=== PATIENT | female | born 1985 | race Caucasian/White ===

== ENCOUNTER 2016-12-08 07:18 | Emergency (ER) | payer OTHER ==
--- NOTE | 2016-12-08 07:59 | ED ---
General Adult HPI - General Chief complaint: Syncope Stated complaint: Fall, head injury Time Seen by Provider: 12/08/16 07:28 Source: patient, RN notes reviewed, old records reviewed Mode of arrival: wheelchair Limitations: no limitations - History of Present Illness Initial comments: This is a 31-year-old female ER for evaluation of syncopal event. Patient has been fall after passing out. Patient has history of syncope, denies any complaints at this time, no headache no chest finishers of breath about pain, no injuries from fall. Patient states she is feeling fine. Does not smoke, is not on control. Has no abdominal pain. Again is no chest pain. She has syncopal event while getting ready for work this morning, has never had this issue before, did collapse but has no injury from fall. Patient's at this time she feels fine - Related Data Home Medications Medication Instructions Recorded Confirmed buPROPion SR [Wellbutrin Sr] 150 mg PO BID 12/08/16 12/08/16 traMADol HCl [Ultram] 50 mg PO BID 12/08/16 12/08/16 Allergies Allergy/AdvReac Type Severity Reaction Status Date / Time No Known Allergies Allergy Verified 12/08/16 07:25 Review of Systems ROS Statement: Those systems with pertinent positive or pertinent negative responses have been documented in the HPI. ROS Other: All systems not noted in ROS Statement are negative. Past Medical History Past Medical History: No Reported History History of Any Multi-Drug Resistant Organisms: None Reported Past Surgical History: No Surgical Hx Reported Past Anesthesia/Blood Transfusion Reactions: No Reported Reaction Past Psychological History: Anxiety, Depression Smoking Status: Current every day smoker Past Alcohol Use History: None Reported Past Drug Use History: None Reported - Past Family History Mother Family Medical History: No Reported History General Exam Limitations: no limitations General appearance: alert, in no apparent distress Head exam: Present: atraumatic, normocephalic, normal inspection Eye exam: Present: normal appearance, PERRL, EOMI. Absent: scleral icterus, conjunctival injection, periorbital swelling ENT exam: Present: normal exam, mucous membranes moist Neck exam: Present: normal inspection. Absent: tenderness, meningismus, lymphadenopathy Respiratory exam: Present: normal lung sounds bilaterally. Absent: respiratory distress, wheezes, rales, rhonchi, stridor Cardiovascular Exam: Present: regular rate, normal rhythm, normal heart sounds. Absent: systolic murmur, diastolic murmur, rubs, gallop, clicks GI/Abdominal exam: Present: soft, normal bowel sounds. Absent: distended, tenderness, guarding, rebound, rigid Extremities exam: Present: normal inspection, full ROM, normal capillary refill. Absent: tenderness, pedal edema, joint swelling, calf tenderness Back exam: Present: normal inspection Neurological exam: Present: alert, oriented X3, CN II-XII intact Psychiatric exam: Present: normal affect, normal mood Skin exam: Present: warm, dry, intact, normal color. Absent: rash Course Vital Signs 12/08/16 12/08/16 07:20 08:41 Temperature 97.4 F L 98.1 F Pulse Rate 116 H 103 H Respiratory 16 18 Rate Blood Pressure 132/87 127/64 O2 Sat by Pulse 97 99 Oximetry EKG Findings - EKG Comments: EKG Findings:: EKG shows sinus tachycardia rate 104, RI 124, QRS 84, QTC 489 Medical Decision Making - Medical Decision Making 31 female to the ER for evaluation of syncope, patient patient has recurrent syncope, at this time has no complaints. Patient states she feels fine and would like to be discharged home - Lab Data Lab Results 12/08/16 12/08/16 12/08/16 Range/Units 07:33 07:48 07:48 POC Glucose (mg/dL) 89 (75-99) mg/dL POC Glu Optical Assistant ID Ted Sidhu Urine Color Yellow Urine Appearance Clear (Clear) Urine pH 5.5 (5.0-8.0) Ur Specific [place] 1.012 (1.001-1.035) Urine Protein Negative (Negative) Urine Glucose (UA) Negative (Negative) Urine Ketones Negative (Negative) Urine Blood Small H (Negative) Urine Nitrite Negative (Negative) Urine Bilirubin Negative (Negative) Urine Urobilinogen <2.0 (<2.0) mg/dL Ur Leukocyte Esterase Negative (Negative) Urine RBC 1 (0-5) /hpf Urine WBC 3 (0-5) /hpf Ur Squamous Epith Cells <1 (0-4) /hpf Hyaline Casts 13 H (0-2) /lpf Granular Casts 33 (0) /lpf Urine Mucus Rare H (None) /hpf Urine HCG, Qual Not Detected (Not Detectd) Disposition Clinical Impression: Vasovagal syncope Disposition: HOME SELF-CARE Condition: Good Instructions: Syncope (ED) Referrals: Molly Larios MD [Primary Care Provider] - 1-2 days
[2016-12-08 08:20] LABS: Appearance,Urine Clear (Clear); Bilirubin,Urine Negative (Negative); Glucose,Urine (UA) Negative (Negative); Granular Casts,Urine 33 /lpf (0); Ketones,Urine Negative (Negative); Leukocyte Esterase,Urine Negative (Negative); Mucus,Urine Rare /hpf; Nitrite,Urine Negative (Negative); PH, Urine 5.5 (5.0-8.0); Particle Count 5222; Protein,Urine Negative (Negative); RBC,Urine 1 /hpf (0-5); Specific Gravity,Urine 1.012 (1.001-1.035); Squamous Epithelial Cell,Urine <1 /hpf (0-4); UA Billing (MACRO vs. MICRO) MICRO; Urobilinogen,Urine <2.0 mg/dL (<2.0); WBC,Urine 3 /hpf (0-5)
[2016-12-08 08:43] VITALS: BP 127/64; PULSE 103; RESP 18; TEMP 98.1
[2016-12-08 08:49] LABS: Glucose,Whole Blood 89 mg/dL (75-99)
--- NOTE | 2016-12-11 16:28 | CDI ---
Please provide a HPI for this patient. Thanks Daly COOPER
== END 2016-12-08 08:42 | disposition home or self-care (01) ==
LOC: EC 07:18
DX: R55 Syncope and collapse (principal); F17.200 Nicotine dependence, unspecified, uncomplicated; F32.9 Major depressive disorder, single episode, unspecified; Z79.899 Other long term (current) drug therapy; Z79.891 Long term (current) use of opiate analgesic
CPT/HCPCS: 36415; 81001; 81025; 93005; 99284

== ENCOUNTER → 2017-02-28 | Outpatient (CLI) | payer OTHER ==
--- NOTE | 2017-02-28 13:22 | MR ---
EXAMINATION TYPE: MR lumbar spine wo con DATE OF EXAM: 02/28/2017 COMPARISON: NONE HISTORY: Low back pain per order. Back pain into right buttocks for years per patient. TECHNIQUE: Multiplanar, multisequence imaging of the lumbar spine is performed without IV contrast. FINDINGS: Sagittal images of the lumbar spine show vertebral body heights and alignment to appear sat isfactory. There is disc desiccation noted at L5-S1 level with posterior disc herniation seen on sagi ttal images otherwise the intervertebral discs demonstrate normal heights and hydration. The conus m edullaris is normal in position and signal ending at mid L1 level. The bone marrow signal intensity is within normal limits. No significant spurring is seen. Axial images show the T12-L1, L1-L2, L2-L3, and L3-L4 levels all to appear within normal limits. Axial images at L4-L5 level show mild bilateral facet degenerative changes and ligamentum flavum hype rtrophy. Spinal canal is preserved and bilateral neural foramina are patent. Axial images at L5-S1 level show mild facet degenerative changes bilaterally. There is broad-based ri ght paracentral disc protrusion but spinal canal is preserved and bilateral neural neural foramina ar e felt patent. No suspicious retroperitoneal findings are identified. IMPRESSION: Some mild multilevel degenerative changes in the lumbar spine as detailed above, disc her niation L5-S1 level is present.
== END | disposition home or self-care (01) ==
LOC: RADMRIMAIN 11:43
PROVIDERS: ATTEND Family Medicine
DX: M51.27 Other intervertebral disc displacement, lumbosacral region (principal); M47.816 Spondylosis without myelopathy or radiculopathy, lumbar region
CPT/HCPCS: 72148

== ENCOUNTER 2017-12-28 17:27 | Observation (INO) | payer OTHER ==
[2017-12-28] MEDS ORDERED: SODIUM CHLORIDE 0.9% 1,000 ML IV STA (17:52)
--- NOTE | 2017-12-28 17:58 | ED ---
Syncope HPI - General Chief Complaint: Syncope Stated Complaint: Syncope Time Seen by Provider: 12/28/17 17:45 Source: patient, EMS Mode of arrival: EMS Limitations: no limitations - History of Present Illness Initial Comments: This 32-year-old white female presents with a complaint of a syncopal episode. She apparently was at home when this occurred. She relates that she thinks that she has fibromyalgia and took 2 unknown milligram pills of Lyrica around noon today. She then started feeling somewhat dizzy and like she was drunk around 2 PM. She apparently passed out and hit her head at that time. She presents with some swelling to her forehead and a contusion to her left lower lip. She also is complaining of some pain to her tailbone. She states that she is feeling less dizzy at this time. She is unsure how long she was unconscious for. She does complain of a slight headache. She relates that this is the first time that she took the Lyrica and it was from a friend. She is counseled not to take any medications she is not prescribed. She denies any neck or back pain. No extremity pain. No other complaints or modifying factors. - Related Data Home Medications Medication Instructions Recorded Confirmed No Known Home Medications [No 12/28/17 12/28/17 Known Home Medications] Allergies Allergy/AdvReac Type Severity Reaction Status Date / Time No Known Allergies Allergy Verified 12/28/17 18:00 Review of Systems ROS Statement: Those systems with pertinent positive or pertinent negative responses have been documented in the HPI. ROS Other: All systems not noted in ROS Statement are negative. Past Medical History Past Medical History: No Reported History History of Any Multi-Drug Resistant Organisms: None Reported Past Surgical History: No Surgical Hx Reported Past Anesthesia/Blood Transfusion Reactions: No Reported Reaction Past Psychological History: Anxiety, Depression Smoking Status: Current every day smoker Past Alcohol Use History: None Reported Past Drug Use History: None Reported, Methamphetamine - Past Family History Mother Family Medical History: No Reported History General Exam - General Exam Comments Initial Comments: GENERAL: The patient is well nourished and well hydrated. VITAL SIGNS: Heart rate, blood pressure, respiratory rate reviewed as recorded in nurse's notes. EYES: Pupils are round and reactive. Extraocular movements are intact. No conjunctival / lid redness or swelling. ENT: There is some mild tenderness and swelling to the forehead region just to the left of midline superiorly. There is some swelling and ecchymosis present to the left lower lip. Dentition is intact and nontender. Airway is patent. Throat is clear. NECK: Nontender. No swelling or evidence of injury. No subcutaneous emphysema. Trachea is midline. No thyroid mass. HEART: Regular rate and rhythm. Good peripheral pulses. LUNGS/CHEST: Breath sounds clear and equal bilaterally. No rales, rhonchi, or wheezes. No ecchymosis, subcutaneous emphysema, or tenderness. ABDOMEN: Abdomen soft without tenderness. No palpable masses or organomegaly. No peritoneal signs. No abdominal wall swelling or ecchymosis. EXTREMITIES: No extremity tenderness. Normal muscle tone and function. No thoracolumbar tenderness. There is some mild tenderness over the sacrum and coccyx. NEUROLOGIC: Sensation is grossly intact. Cranial nerve exam reveals face is symmetrical, tongue is midline, speech is clear. SKIN: No abrasions or ecchymosis is noted. No induration or masses noted. PSYCHIATRIC: Alert and oriented. Appropriate behavior and judgment. Limitations: no limitations Course Vital Signs 12/28/17 12/28/17 17:30 19:15 Temperature 98.3 F 99.3 F Pulse Rate 123 H 106 H Respiratory 20 16 Rate Blood Pressure 119/57 121/68 O2 Sat by Pulse 100 100 Oximetry Medical Decision Making - Medical Decision Making The patient was seen and examined. All diagnostics were reviewed. IV hydration is initiated. The EKG shows a sinus tachycardia rate of 111. There is no acute ST-T wave changes identified. The ME intervals 140, QRS duration is 70, and the QTC intervals 467. The laboratory was all essentially within normal limits. The urinalysis did show the possibility of a urinary infection or patient is completely asymptomatic in regards to frequency, urgency, dysuria , and hematuria. Overall, it is felt as though the urinary findings are equivocal and she will not be treated for urinary tract infection at this time. The computed tomography scan of the brain did not show any acute processes. The sacrum and coccyx x-ray is negative for any fracture. She is doing well on recheck. The urinalysis drug screen shows positive for methadone, amphetamines , and dextroamphetamines. She is questioned in this regard and states that she does not take any of these medications. She is wondering if this could be a cross reactive reaction to taking Wellbutrin. It is felt that it would not be likely but potentially possible further amphetamines and dextroamphetamines. It would not show positive for methadone. She was questioned several different ways and still refuses taking these medications. Nevertheless, it is felt as though she stable for discharge. She is counseled once again about avoiding drugs from other people and avoiding any amphetamines or methadone. - Lab Data Result diagrams: 12/28/17 17:15 12/28/17 17:15 Lab Results 12/28/17 12/28/17 12/28/17 Range/Units 17:15 17:15 17:15 WBC 6.6 (3.8-10.6) k/uL RBC 3.84 (3.80-5.40) m/uL Hgb 12.6 (11.4-16.0) gm/dL Hct 38.3 (34.0-46.0) % MCV 99.9 (80.0-100.0) fL MCH 32.7 (25.0-35.0) pg MCHC 32.8 (31.0-37.0) g/dL RDW 12.8 (11.5-15.5) % Plt Count 288 (150-450) k/uL Neutrophils % 72 % Lymphocytes % 14 % Monocytes % 6 % Eosinophils % 4 % Basophils % 0 % Neutrophils # 4.8 (1.3-7.7) k/uL Lymphocytes # 0.9 L (1.0-4.8) k/uL Monocytes # 0.4 (0-1.0) k/uL Eosinophils # 0.2 (0-0.7) k/uL Basophils # 0.0 (0-0.2) k/uL PT (9.0-12.0) sec INR (<1.2) APTT (22.0-30.0) sec Sodium 142 (137-145) mmol/L Potassium 4.3 (3.5-5.1) mmol/L Chloride 104 (98-107) mmol/L Carbon Dioxide 24 (22-30) mmol/L Anion Gap 14 mmol/L BUN 11 (7-17) mg/dL Creatinine 0.70 (0.52-1.04) mg/dL Est GFR (CKD-EPI)AfAm >90 (>60 ml/min/1.73 sqM) Est GFR (CKD-EPI)NonAf >90 (>60 ml/min/1.73 sqM) Glucose 89 (74-99) mg/dL Calcium 9.4 (8.4-10.2) mg/dL Total Bilirubin 0.2 (0.2-1.3) mg/dL AST 23 (14-36) U/L ALT 39 (9-52) U/L Alkaline Phosphatase 66 (38-126) U/L Total Creatine Kinase 109 (30-135) U/L CK-MB (CK-2) 0.5 (0.0-2.4) ng/mL CK-MB (CK-2) Rel Index 0.5 Troponin I <0.012 (0.000-0.034) ng/mL Total Protein 6.4 (6.3-8.2) g/dL Albumin 3.8 (3.5-5.0) g/dL HCG, Qual Not Detected Urine Color Urine Appearance (Clear) Urine pH (5.0-8.0) Ur Specific [place] (1.001-1.035) Urine Protein (Negative) Urine Glucose (UA) (Negative) Urine Ketones (Negative) Urine Blood (Negative) Urine Nitrite (Negative) Urine Bilirubin (Negative) Urine Urobilinogen (<2.0) mg/dL Ur Leukocyte Esterase (Negative) Urine RBC (0-5) /hpf Urine WBC (0-5) /hpf Ur Squamous Epith Cells (0-4) /hpf Amorphous Sediment (None) /hpf Hyaline Casts (0-2) /lpf Urine Mucus (None) /hpf Urine Opiates Screen (NotDetected) Ur Oxycodone Screen (NotDetected) Urine Methadone Screen (NotDetected) Ur Propoxyphene Screen (NotDetected) Ur Barbiturates Screen (NotDetected) U Tricyclic Antidepress (NotDetected) Ur Phencyclidine Scrn (NotDetected) Ur Amphetamines Screen (NotDetected) U Methamphetamines Scrn (NotDetected) U Benzodiazepines Scrn (NotDetected) Urine Cocaine Screen (NotDetected) U Marijuana (THC) Screen (NotDetected) Serum Alcohol <10 mg/dL 12/28/17 12/28/17 12/28/17 Range/Units 17:15 17:15 17:15 WBC (3.8-10.6) k/uL RBC (3.80-5.40) m/uL Hgb (11.4-16.0) gm/dL Hct (34.0-46.0) % MCV (80.0-100.0) fL MCH (25.0-35.0) pg MCHC (31.0-37.0) g/dL RDW (11.5-15.5) % Plt Count (150-450) k/uL Neutrophils % % Lymphocytes % % Monocytes % % Eosinophils % % Basophils % % Neutrophils # (1.3-7.7) k/uL Lymphocytes # (1.0-4.8) k/uL Monocytes # (0-1.0) k/uL Eosinophils # (0-0.7) k/uL Basophils # (0-0.2) k/uL PT 10.0 (9.0-12.0) sec INR 1.0 (<1.2) APTT 23.0 (22.0-30.0) sec Sodium (137-145) mmol/L Potassium (3.5-5.1) mmol/L Chloride (98-107) mmol/L Carbon Dioxide (22-30) mmol/L Anion Gap mmol/L BUN (7-17) mg/dL Creatinine (0.52-1.04) mg/dL Est GFR (CKD-EPI)AfAm (>60 ml/min/1.73 sqM) Est GFR (CKD-EPI)NonAf (>60 ml/min/1.73 sqM) Glucose (74-99) mg/dL Calcium (8.4-10.2) mg/dL Total Bilirubin (0.2-1.3) mg/dL AST (14-36) U/L ALT (9-52) U/L Alkaline Phosphatase (38-126) U/L Total Creatine Kinase (30-135) U/L CK-MB (CK-2) (0.0-2.4) ng/mL CK-MB (CK-2) Rel Index Troponin I (0.000-0.034) ng/mL Total Protein (6.3-8.2) g/dL Albumin (3.5-5.0) g/dL HCG, Qual Urine Color Yellow Urine Appearance Clear (Clear) Urine pH 5.5 (5.0-8.0) Ur Specific [place] 1.024 (1.001-1.035) Urine Protein 1+ H (Negative) Urine Glucose (UA) Negative (Negative) Urine Ketones Trace H (Negative) Urine Blood Negative (Negative) Urine Nitrite Negative (Negative) Urine Bilirubin Negative (Negative) Urine Urobilinogen 2.0 (<2.0) mg/dL Ur Leukocyte Esterase Small H (Negative) Urine RBC 1 (0-5) /hpf Urine WBC 14 H (0-5) /hpf Ur Squamous Epith Cells <1 (0-4) /hpf Amorphous Sediment Occasional H (None) /hpf Hyaline Casts 33 H (0-2) /lpf Urine Mucus Moderate H (None) /hpf Urine Opiates Screen Not Detected (NotDetected) Ur Oxycodone Screen Not Detected (NotDetected) Urine Methadone Screen Detected H (NotDetected) Ur Propoxyphene Screen Not Detected (NotDetected) Ur Barbiturates Screen Not Detected (NotDetected) U Tricyclic Antidepress Not Detected (NotDetected) Ur Phencyclidine Scrn Not Detected (NotDetected) Ur Amphetamines Screen Detected H (NotDetected) U Methamphetamines Scrn Detected H (NotDetected) U Benzodiazepines Scrn Not Detected (NotDetected) Urine Cocaine Screen Not Detected (NotDetected) U Marijuana (THC) Screen Not Detected (NotDetected) Serum Alcohol mg/dL Disposition Clinical Impression: Syncope, Accidental drug overdose, Head injury, Coccygeal contusion, Substance abuse Disposition: HOME SELF-CARE Condition: Good Instructions: Coccyx Injury (ED), Head Injury (ED), Facial Contusion (ED), Syncope (ED) Additional Instructions: Please use Tylenol or ibuprofen as needed for pain. Is patient prescribed a controlled substance at d/c from ED?: No Referrals: Molly Larios MD [Primary Care Provider] - 1-2 days Time of Disposition: 19:56
[2017-12-28 18:05] LABS: Basophils % (A) 0 %; Eosinophils # (A) 0.2 k/uL (0-0.7); Eosinophils % (A) 4 %; HCT 38.3 % (34.0-46.0); HGB 12.6 gm/dL (11.4-16.0); Lymphocytes # (A) 0.9 k/uL (1.0-4.8); Lymphocytes % (A) 14 %; MCH 32.7 pg (25.0-35.0); MCHC 32.8 g/dL (31.0-37.0); MCV 99.9 fL (80.0-100.0); Mean Platelet Volume 6.5; Monocytes # (A) 0.4 k/uL (0-1.0); Monocytes % (A) 6 %; Neutrophils # (A) 4.8 k/uL (1.3-7.7); Neutrophils % (A) 72 %; Platelet Count 288 k/uL (150-450); RBC 3.84 m/uL (3.80-5.40); RDW 12.8 % (11.5-15.5); WBC 6.6 k/uL (3.8-10.6)
[2017-12-28 18:11] LABS: Amorphous Sediment,Urine Occasional /hpf; Appearance,Urine Clear (Clear); Bilirubin,Urine Negative (Negative); Blood,Urine Negative (Negative); Color,Urine Yellow; Glucose,Urine (UA) Negative (Negative); Hyaline Casts,Urine 33 /lpf (0-2); Ketones,Urine Trace (Negative); Leukocyte Esterase,Urine Small (Negative); Mucus,Urine Moderate /hpf; Nitrite,Urine Negative (Negative); PH, Urine 5.5 (5.0-8.0); Protein,Urine 1+ (Negative); RBC,Urine 1 /hpf (0-5); Specific Gravity,Urine 1.024 (1.001-1.035); Squamous Epithelial Cell,Urine <1 /hpf (0-4); WBC,Urine 14 /hpf (0-5)
[2017-12-28 18:16] LABS: HCG,Qualitative Serum Not Detected
[2017-12-28 18:17] LABS: Amphetamine Screen,Urine Detected (NotDetected); Barbiturate Screen,Urine Not Detected (NotDetected); Benzodiazepines Screen,Urine Not Detected (NotDetected); Cocaine Screen,Urine Not Detected (NotDetected); Methadone Screen, Urine Detected (NotDetected); Opiate Screen,Urine Not Detected (NotDetected); Oxycodone Screen, Urine Not Detected (NotDetected); Phencyclidine Screen,Urine Not Detected (NotDetected); Tricyclic Antidepressant,Urine Not Detected (NotDetected); Urn Cannabinoid Scrn Not Detected (NotDetected)
[2017-12-28 18:18] LABS: ALT 39 U/L (9-52); AST 23 U/L (14-36); Albumin 3.8 g/dL (3.5-5.0); Alcohol <10 mg/dL; Alkaline Phosphatase 66 U/L (38-126); Anion Gap 14 mmol/L; Blood Urea Nitrogen 11 mg/dL (7-17); Calcium 9.4 mg/dL (8.4-10.2); Carbon Dioxide 24 mmol/L (22-30); Chloride 104 mmol/L (98-107); Glucose 89 mg/dL (74-99); Potassium 4.3 mmol/L (3.5-5.1); Sodium 142 mmol/L (137-145); Total Bilirubin 0.2 mg/dL (0.2-1.3); Total Protein 6.4 g/dL (6.3-8.2)
[2017-12-28 18:25] LABS: Creatine Kinase 109 U/L (30-135)
--- NOTE | 2017-12-28 18:37 | CT ---
EXAMINATION TYPE: CT brain wo con DATE OF EXAM: 12/28/2017 COMPARISON: NONE HISTORY: 32-year-old female complains of multiple syncopal episodes. TECHNIQUE: Examination was done in axial plane without intravenous contrast. Coronal and sagittal r econstructions performed. CT DLP: 915 mGycm Automated exposure control for dose reduction was used. FINDINGS: There is no evidence of acute intracranial hemorrhage, acute ischemic changes, mass, mass-effect, or extra-axial fluid collection. There is no effacement of cerebral sulci or basal subarachnoid cister ns. There is no hydrocephalus. There is no midline shift. Serna-white matter distinction is preserv ed. Patient's gaze is divergent suggesting underlying strabismus. Mucosal thickening in the inferior ethm oid air cells. Mastoid air cells well pneumatized. No calvarial fracture. IMPRESSION: No acute intracranial abnormality seen.
[2017-12-28 18:39] LABS: Creatine Kinase MB 0.5 ng/mL (0.0-2.4); Troponin I <0.012 ng/mL (0.000-0.034)
--- NOTE | 2017-12-28 19:31 | XR ---
EXAMINATION TYPE: XR sacrum coccyx DATE OF EXAM: 12/28/2017 COMPARISON: NONE HISTORY: 32-year-old female with pain after fall TECHNIQUE: 3 views FINDINGS: SI joints appear intact. Arcuate lines of the sacrum are smooth and continuous. Pubic symphysis intac t. No angulated or displaced sacral or coccygeal fracture on the lateral view. IMPRESSION: No angulated or displaced tailbone fracture.
[2017-12-28] MEDS: SODIUM CHLORIDE 0.9% 1,000 ML IV STA ×2 (20:16→21:02)
[2017-12-28] MEDS ORDERED: LORazepam 2 MG/ML INJ IM STA (20:31)
--- NOTE | 2017-12-28 20:54 | ED ---
Medical Decision Making - Medical Decision Making Prior to discharge, the patient had approximately 2 seizures well nourished. The second one was witnessed by the nurse and was tonic-clonic in nature and lasted approximately 30 seconds. She denies ever having any previous seizures. At this point, it is felt as though she would benefit from admission to the hospital for further treatment. She is agreeable. The case will be discussed with internal medicine shortly and neurology consult will be placed. She will also be started on some Keppra. - Lab Data Result diagrams: 12/28/17 17:15 12/28/17 17:15 Lab Results 12/28/17 12/28/17 12/28/17 Range/Units 17:15 17:15 17:15 WBC 6.6 (3.8-10.6) k/uL RBC 3.84 (3.80-5.40) m/uL Hgb 12.6 (11.4-16.0) gm/dL Hct 38.3 (34.0-46.0) % MCV 99.9 (80.0-100.0) fL MCH 32.7 (25.0-35.0) pg MCHC 32.8 (31.0-37.0) g/dL RDW 12.8 (11.5-15.5) % Plt Count 288 (150-450) k/uL Neutrophils % 72 % Lymphocytes % 14 % Monocytes % 6 % Eosinophils % 4 % Basophils % 0 % Neutrophils # 4.8 (1.3-7.7) k/uL Lymphocytes # 0.9 L (1.0-4.8) k/uL Monocytes # 0.4 (0-1.0) k/uL Eosinophils # 0.2 (0-0.7) k/uL Basophils # 0.0 (0-0.2) k/uL PT (9.0-12.0) sec INR (<1.2) APTT (22.0-30.0) sec Sodium 142 (137-145) mmol/L Potassium 4.3 (3.5-5.1) mmol/L Chloride 104 (98-107) mmol/L Carbon Dioxide 24 (22-30) mmol/L Anion Gap 14 mmol/L BUN 11 (7-17) mg/dL Creatinine 0.70 (0.52-1.04) mg/dL Est GFR (CKD-EPI)AfAm >90 (>60 ml/min/1.73 sqM) Est GFR (CKD-EPI)NonAf >90 (>60 ml/min/1.73 sqM) Glucose 89 (74-99) mg/dL Calcium 9.4 (8.4-10.2) mg/dL Total Bilirubin 0.2 (0.2-1.3) mg/dL AST 23 (14-36) U/L ALT 39 (9-52) U/L Alkaline Phosphatase 66 (38-126) U/L Total Creatine Kinase 109 (30-135) U/L CK-MB (CK-2) 0.5 (0.0-2.4) ng/mL CK-MB (CK-2) Rel Index 0.5 Troponin I <0.012 (0.000-0.034) ng/mL Total Protein 6.4 (6.3-8.2) g/dL Albumin 3.8 (3.5-5.0) g/dL HCG, Qual Not Detected Urine Color Urine Appearance (Clear) Urine pH (5.0-8.0) Ur Specific [place] (1.001-1.035) Urine Protein (Negative) Urine Glucose (UA) (Negative) Urine Ketones (Negative) Urine Blood (Negative) Urine Nitrite (Negative) Urine Bilirubin (Negative) Urine Urobilinogen (<2.0) mg/dL Ur Leukocyte Esterase (Negative) Urine RBC (0-5) /hpf Urine WBC (0-5) /hpf Ur Squamous Epith Cells (0-4) /hpf Amorphous Sediment (None) /hpf Hyaline Casts (0-2) /lpf Urine Mucus (None) /hpf Urine Opiates Screen (NotDetected) Ur Oxycodone Screen (NotDetected) Urine Methadone Screen (NotDetected) Ur Propoxyphene Screen (NotDetected) Ur Barbiturates Screen (NotDetected) U Tricyclic Antidepress (NotDetected) Ur Phencyclidine Scrn (NotDetected) Ur Amphetamines Screen (NotDetected) U Methamphetamines Scrn (NotDetected) U Benzodiazepines Scrn (NotDetected) Urine Cocaine Screen (NotDetected) U Marijuana (THC) Screen (NotDetected) Serum Alcohol <10 mg/dL 12/28/17 12/28/17 12/28/17 Range/Units 17:15 17:15 17:15 WBC (3.8-10.6) k/uL RBC (3.80-5.40) m/uL Hgb (11.4-16.0) gm/dL Hct (34.0-46.0) % MCV (80.0-100.0) fL MCH (25.0-35.0) pg MCHC (31.0-37.0) g/dL RDW (11.5-15.5) % Plt Count (150-450) k/uL Neutrophils % % Lymphocytes % % Monocytes % % Eosinophils % % Basophils % % Neutrophils # (1.3-7.7) k/uL Lymphocytes # (1.0-4.8) k/uL Monocytes # (0-1.0) k/uL Eosinophils # (0-0.7) k/uL Basophils # (0-0.2) k/uL PT 10.0 (9.0-12.0) sec INR 1.0 (<1.2) APTT 23.0 (22.0-30.0) sec Sodium (137-145) mmol/L Potassium (3.5-5.1) mmol/L Chloride (98-107) mmol/L Carbon Dioxide (22-30) mmol/L Anion Gap mmol/L BUN (7-17) mg/dL Creatinine (0.52-1.04) mg/dL Est GFR (CKD-EPI)AfAm (>60 ml/min/1.73 sqM) Est GFR (CKD-EPI)NonAf (>60 ml/min/1.73 sqM) Glucose (74-99) mg/dL Calcium (8.4-10.2) mg/dL Total Bilirubin (0.2-1.3) mg/dL AST (14-36) U/L ALT (9-52) U/L Alkaline Phosphatase (38-126) U/L Total Creatine Kinase (30-135) U/L CK-MB (CK-2) (0.0-2.4) ng/mL CK-MB (CK-2) Rel Index Troponin I (0.000-0.034) ng/mL Total Protein (6.3-8.2) g/dL Albumin (3.5-5.0) g/dL HCG, Qual Urine Color Yellow Urine Appearance Clear (Clear) Urine pH 5.5 (5.0-8.0) Ur Specific [place] 1.024 (1.001-1.035) Urine Protein 1+ H (Negative) Urine Glucose (UA) Negative (Negative) Urine Ketones Trace H (Negative) Urine Blood Negative (Negative) Urine Nitrite Negative (Negative) Urine Bilirubin Negative (Negative) Urine Urobilinogen 2.0 (<2.0) mg/dL Ur Leukocyte Esterase Small H (Negative) Urine RBC 1 (0-5) /hpf Urine WBC 14 H (0-5) /hpf Ur Squamous Epith Cells <1 (0-4) /hpf Amorphous Sediment Occasional H (None) /hpf Hyaline Casts 33 H (0-2) /lpf Urine Mucus Moderate H (None) /hpf Urine Opiates Screen Not Detected (NotDetected) Ur Oxycodone Screen Not Detected (NotDetected) Urine Methadone Screen Detected H (NotDetected) Ur Propoxyphene Screen Not Detected (NotDetected) Ur Barbiturates Screen Not Detected (NotDetected) U Tricyclic Antidepress Not Detected (NotDetected) Ur Phencyclidine Scrn Not Detected (NotDetected) Ur Amphetamines Screen Detected H (NotDetected) U Methamphetamines Scrn Detected H (NotDetected) U Benzodiazepines Scrn Not Detected (NotDetected) Urine Cocaine Screen Not Detected (NotDetected) U Marijuana (THC) Screen Not Detected (NotDetected) Serum Alcohol mg/dL Disposition Clinical Impression: Syncope, Accidental drug overdose, Head injury, Coccygeal contusion, Substance abuse, New onset seizure, Sinus tachycardia Disposition: HOME SELF-CARE Condition: Good Additional Instructions: Please use Tylenol or ibuprofen as needed for pain. Is patient prescribed a controlled substance at d/c from ED?: No Referrals: Molly Larios MD [Primary Care Provider] - 1-2 days Time of Disposition: 20:56 Decision Date: 12/28/17 Decision Time: 20:56
[2017-12-28] MEDS ORDERED: NALOXONE 0.4 MG/ML 1 ML VIAL IV PRN (21:00)
[2017-12-28] MEDS ORDERED: LORazepam 2 MG/ML INJ IV PRN (21:00)
[2017-12-28] MEDS ORDERED: ONDANSETRON 4 MG/2 ML VIAL IVP PRN (21:00)
[2017-12-28 23:10] VITALS: BMI 32.2
[2017-12-29] MEDS ORDERED: PANTOPRAZOLE 40 MG/10 ML VIAL IV SCH (09:00)
[2017-12-29] MEDS: ENOXAPARIN 40 MG/0.4 ML SYRINGE SQ SCH (09:09)
[2017-12-29] MEDS: ACETAMINOPHEN TAB 325 MG TAB PO PRN ×2 (09:09→18:24)
[2017-12-29] MEDS: IBUPROFEN 800 MG TAB PO PRN (14:15)
--- NOTE | 2017-12-29 14:27 | P.HPIM ---
History of Present Illness H&P Date: 12/29/17 Bri Avery is a 32-year-old white female who presented to [facility] emergency room with a complaint of a syncopal episode. She apparently was at home when this occurred. She relates that she thinks that she has fibromyalgia and took 2 pills of Lyrica around noon today that were given to her by a friend to help with back pain. She then started feeling somewhat dizzy and like she was drunk around 2 PM. She apparently passed out and hit her head at that time. She presents with some swelling to her forehead and a contusion to her left lower lip. She also is complaining of some pain to her tailbone. She states that she is feeling less dizzy at this time. She is unsure how long she was unconscious for. She does complain of a slight headache. She relates that this is the first time that she took the Lyrica and it was from a friend. She denies any neck or back pain. No extremity pain. No other complaints or modifying factors. Patient denies taking any other medications however Her urine toxicology screen was positive for methadone, amphetamine, and methamphetamine. Patient was admitted to medical floor neurology consultation was requested patient was asked about her toxicology screen and she admits taking some unknown pills from her friends, she was counseled in length in that regard, psychiatry consultation was requested. Patient also had evidence of tachycardia and a low-grade fever urine analysis revealed evidence of urinary tract infection she was started on IV Rocephin 1 g every 24 hours. Past Medical History Past Medical History: No Reported History Additional Past Medical History / Comment(s): scoliosis, fractured tailbone, History of Any Multi-Drug Resistant Organisms: None Reported Past Surgical History: No Surgical Hx Reported Past Anesthesia/Blood Transfusion Reactions: No Reported Reaction Past Psychological History: Anxiety, Depression Smoking Status: Former smoker Past Alcohol Use History: None Reported Past Drug Use History: None Reported, Methamphetamine - Past Family History Mother Family Medical History: No Reported History Medications and Allergies Home Medications Medication Instructions Recorded Confirmed Type No Known Home Medications [No 12/28/17 12/28/17 History Known Home Medications] Allergies Allergy/AdvReac Type Severity Reaction Status Date / Time No Known Allergies Allergy Verified 12/28/17 18:00 Physical Exam Vitals: Vital Signs Temp Pulse Pulse Resp BP BP BP 12/29/17 07:52 12/29/17 06:21 99.3 F 114 H 20 94/63 12/29/17 00:00 107 H 12/28/17 23:00 99.3 F 107 H 20 116/73 12/28/17 22:10 98.9 F 110 H 18 112/62 12/28/17 21:13 98.4 F 115 H 16 121/71 12/28/17 20:32 99.9 F H 130 H 22 150/67 12/28/17 19:15 99.3 F 106 H 16 121/68 12/28/17 17:30 98.3 F 123 H 20 119/57 Pulse Ox 12/29/17 07:52 97 12/29/17 06:21 96 12/29/17 00:00 12/28/17 23:00 100 12/28/17 22:10 99 12/28/17 21:13 97 12/28/17 20:32 99 12/28/17 19:15 100 12/28/17 17:30 100 Intake and Output 12/28/17 12/29/17 12/29/17 22:59 06:59 14:59 Intake Total 100 240 Balance 100 240 Intake: Oral 100 240 Other: Voiding Method Bedside Commode Bedside Commode # Voids 3 2 Weight 90.718 kg 80 kg 80 kg In general patient is alert and oriented 3 in no apparent distress HEENT head normocephalic and atraumatic Neck is supple no JVD no goiter no lymphadenopathy Chest exam reveals a few scattered rhonchi no wheezing Cardiac exam reveals regular heart sounds S1 and S2 no gallops no murmurs Abdomen is soft nontender no organomegaly with normal bowel sounds Extremity exam reveals no edema no cyanosis or clubbing Neurological examination reveals no gross focal deficit Results CBC & Chem 7: 12/28/17 17:15 12/28/17 17:15 Labs: Abnormal Lab Results - Last 24 Hours (Table) 12/28/17 12/28/17 12/28/17 Range/Units 17:15 17:15 17:15 Lymphocytes # 0.9 L (1.0-4.8) k/uL Urine Protein 1+ H (Negative) Urine Ketones Trace H (Negative) Ur Leukocyte Esterase Small H (Negative) Urine WBC 14 H (0-5) /hpf Amorphous Sediment Occasional H (None) /hpf Hyaline Casts 33 H (0-2) /lpf Urine Mucus Moderate H (None) /hpf Urine Methadone Screen Detected H (NotDetected) Ur Amphetamines Screen Detected H (NotDetected) U Methamphetamines Scrn Detected H (NotDetected) Thrombosis Risk Factor Assmnt - Choose All That Apply Any of the Below Risk Factors Present?: Yes Each Factor Represents 1 point: Obesity (BMI >25) Other Risk Factors: No Thrombosis Risk Factor Assessment Total Risk Factor Score: 1 Thrombosis Risk Factor Assessment Level: Low Risk Assessment and Plan Plan: #1 syncopal episode, with fall #2 head injury #3 sacral area injury #4 substance abuse #5 urinary tract infection At this time patient is admitted to medical floor she was started on IV fluid, IV Rocephin, And on seizure precautions Neurology consultation and psychiatry consultation were requested Patient was counseled in length in regards to not take any medication and left they were prescribed to her, and not to take any unknown medications from friends Will continue to monitor closely
[2017-12-29] MEDS: cefTRIAXone IN SWFI 1,000 MG/10 ML SYRINGE IVP SCH (14:45)
[2017-12-29] MEDS: NICOTINE 21MG/24HR PATCH TRANSDERM SCH (14:52)
--- NOTE | 2017-12-29 18:52 | P.CNNES ---
History of Present Illness Consult date: 12/29/17 Requesting physician: Juanjose De León Reason for Consult: Syncope History of Present Illness: Patient is a 32-year-old female who is being evaluated by the neurology service on 12/29/2017 per the request of Dr. De León for syncope. Patient states she was at home in the basement doing laundry when she suddenly felt like she was getting passout. Patient states she fell to the floor hitting her face. Patient states she believes she has fibromyalgia and had taken to Lyrica pills that were given to her by a friend. She does not know how many milligrams they were or if in fact they were Lyrica. Patient states she does take multiple medications from friends. She remembers taking and Adderall recently from a friend. She states she had friend that had given her a pill which she thought was ecstasy but it was not and she decided to take it anyway. She admits that she has a problem with medication abuse. She did come to [facility] for evaluation for her syncopal episode and fall. Patient was to be discharged from the emergency room but was found to have had a seizure while she was getting ready to go home. Patient was admitted for further evaluation. Vital signs on admission poor temp 98.3, pulse rate 123, a story rate 20, blood pressure 119/57, and oxygen saturation 100% on room air. Patient's labs were unremarkable except for urine drug screen. Her urine drug screen was positive for methadone, amphetamines and methamphetamines. Patient denies that this could be possible. Patient informs me that she has been to several physicians and no one is able to help her with her pain. Patient urinalysis also revealed a urinary tract infection. At the time of my evaluation, patient's resting comfortably in bed and appears to be in no acute distress. Review of Systems REVIEW OF SYSTEMS: Otherwise unremarkable and noncontributory. Past Medical History Past Medical History: No Reported History Additional Past Medical History / Comment(s): scoliosis, fractured tailbone, History of Any Multi-Drug Resistant Organisms: None Reported Past Surgical History: No Surgical Hx Reported Past Anesthesia/Blood Transfusion Reactions: No Reported Reaction Past Psychological History: Anxiety, Depression Smoking Status: Former smoker Past Alcohol Use History: None Reported Past Drug Use History: None Reported, Methamphetamine - Past Family History Mother Family Medical History: No Reported History Medications and Allergies Home Medications Medication Instructions Recorded Confirmed Type No Known Home Medications [No 12/28/17 12/28/17 History Known Home Medications] Allergies Allergy/AdvReac Type Severity Reaction Status Date / Time No Known Allergies Allergy Verified 12/28/17 18:00 Physical Examination - Vital Signs Vital Signs: Vital Signs Temp Pulse Pulse Resp BP BP BP 12/29/17 14:40 100.4 F H 98 18 113/67 12/29/17 07:52 12/29/17 06:21 99.3 F 114 H 20 94/63 12/29/17 00:00 107 H 12/28/17 23:00 99.3 F 107 H 20 116/73 12/28/17 22:10 98.9 F 110 H 18 112/62 12/28/17 21:13 98.4 F 115 H 16 121/71 12/28/17 20:32 99.9 F H 130 H 22 150/67 12/28/17 19:15 99.3 F 106 H 16 121/68 Pulse Ox 12/29/17 14:40 97 12/29/17 07:52 97 12/29/17 06:21 96 12/29/17 00:00 12/28/17 23:00 100 12/28/17 22:10 99 12/28/17 21:13 97 12/28/17 20:32 99 12/28/17 19:15 100 Intake and Output 12/29/17 12/29/17 12/29/17 06:59 14:59 22:59 Intake Total 100 240 Balance 100 240 Intake: Oral 100 240 Other: Voiding Method Bedside Commode Bedside Commode Bedside Commode # Voids 3 2 2 Weight 80 kg 80 kg 80 kg PHYSICAL EXAM: GENERAL APPEARANCE: Patient is a well-developed, female who appears to be in no acute distress. HEENT: Normocephalic, atraumatic, no facial asymmetry is seen. Neck is supple with no masses felt. CARDIOVASCULAR: Regular rate and rhythm. ABDOMEN: Nontender, nondistended. EXTREMITIES: Show no edema or clubbing. NEUROLOGICAL EXAM: Patient is awake, alert, and oriented 3. Speech and language are normal. Strength is full in all 4 extremities. Sensory exam is normal to light touch in all 4 extremities. No facial asymmetry is noted on cranial nerve testing. No tremors or seizure-like activity noted. Results - Laboratory Findings CBC and BMP: 12/28/17 17:15 12/28/17 17:15 Abnormal Lab Findings: Abnormal Labs 12/28/17 12/28/17 12/28/17 17:15 17:15 17:15 Lymphocytes # 0.9 L Urine Protein 1+ H Urine Ketones Trace H Ur Leukocyte Esterase Small H Urine WBC 14 H Amorphous Sediment Occasional H Hyaline Casts 33 H Urine Mucus Moderate H Urine Methadone Screen Detected H Ur Amphetamines Screen Detected H U Methamphetamines Scrn Detected H Assessment and Plan Plan: Impression: 1. Syncope 2. New onset seizure 3. Medication misuse 4. Back pain Recommendation: It does appear patient has been taking medication that is not prescribed to her. Most likely her syncopal episode was from a Lyrica toxicity. Patient admits to taking multiple different medications and not even knowing what they are. This may have contributed to her seizure activity. Her urine drug screen does show amphetamines, methamphetamines, and methadone. Patient denies history of seizure activity. Being that this is her first seizure, no antiepileptic medication is required. I counseled patient at length about taking medication that is not prescribed to her. I counseled her at length about taking illicit drugs. Patient informs me she was seeing counseling regarding her drug addiction but had stopped going. I recommend a psychological consult and for her to continue as an outpatient for counseling regarding this matter. Patient agrees. As for her back pain, patient can make an appointment to be evaluated in the office in the outpatient setting. Patient has no neurological deficits. Computed tomography scan of the brain showed no acute intracranial abnormality. No further neurological workup is needed at this time. Continue neurological checks. Continue seizure precautions. I will continue to follow with you on an as-needed basis. Feel free to call with any questions or concerns. Thank you for allowing me to participate in the care of your patient. Feel free to call with any questions or concerns. I performed an examination of the patient and discussed the management with the MINE FOREMAN. I have reviewed the MINE FOREMAN notes and agree with the findings and plan of care.
[2017-12-30] MEDS: NICOTINE 21MG/24HR PATCH TRANSDERM SCH (08:30)
[2017-12-30] MEDS: IBUPROFEN 800 MG TAB PO PRN (08:30)
[2017-12-30] MEDS: ENOXAPARIN 40 MG/0.4 ML SYRINGE SQ SCH (08:31)
[2017-12-30] MEDS: cefTRIAXone IN SWFI 1,000 MG/10 ML SYRINGE IVP SCH (08:31)
[2017-12-30] MEDS ORDERED: PANTOPRAZOLE 40 MG TABLET PO SCH (09:00)
[2017-12-30 12:24] LABS: Basophils % (A) 0 %; Eosinophils # (A) 0.1 k/uL (0-0.7); Eosinophils % (A) 3 %; HCT 37.8 % (34.0-46.0); HGB 12.3 gm/dL (11.4-16.0); Lymphocytes # (A) 0.7 k/uL (1.0-4.8); Lymphocytes % (A) 16 %; MCH 32.9 pg (25.0-35.0); MCHC 32.6 g/dL (31.0-37.0); Mean Platelet Volume 6.8; Monocytes # (A) 0.2 k/uL (0-1.0); Monocytes % (A) 4 %; Neutrophils # (A) 3.3 k/uL (1.3-7.7); Neutrophils % (A) 73 %; Platelet Count 273 k/uL (150-450); RBC 3.74 m/uL (3.80-5.40); RDW 12.8 % (11.5-15.5); WBC 4.5 k/uL (3.8-10.6)
[2017-12-30 12:32] LABS: ALT 30 U/L (9-52); AST 15 U/L (14-36); Albumin 3.7 g/dL (3.5-5.0); Alkaline Phosphatase 59 U/L (38-126); Anion Gap 13 mmol/L; Blood Urea Nitrogen 9 mg/dL (7-17); Calcium 9.4 mg/dL (8.4-10.2); Carbon Dioxide 24 mmol/L (22-30); Chloride 106 mmol/L (98-107); Glucose 130 mg/dL (74-99); Potassium 4.3 mmol/L (3.5-5.1); Sodium 143 mmol/L (137-145); Total Bilirubin 0.2 mg/dL (0.2-1.3); Total Protein 6.3 g/dL (6.3-8.2)
--- NOTE | 2017-12-30 14:58 | P.DS ---
Providers Date of admission: 12/28/17 21:00 Expected date of discharge: 12/30/17 Attending physician: Juanjose De León Consults: 12/28/17 21:01 Consult Physician Urgent Consulting Provider: Abdullahi Renee Consult Reason/Comments: new onset seizures Do you want consulting provider notified?: Yes 12/29/17 13:58 Consult Physician Urgent Consulting Provider: Natalio Waite Consult Reason/Comments: addiction drug problems Do you want consulting provider notified?: Already Contacted Primary care physician: Molly Larios Hospital Course: Diagnosis on Discharge #1 syncopal episode, with fall #2 head injury, no intracranial abnormality on computed tomography scan #3 sacral area injury, without evidence of fracture on x-ray #4 substance abuse, with toxicology screen positive for methadone, amphetamine and methamphetamine #5 urinary tract infection, patient treated with Rocephin during her hospital stay she was given a prescription for Ceftin 500 mg twice daily for 5 more days #6 tobacco abuse, patient was counseled in length to quit smoking, she was given a NicoDerm patches during this admission .She was given a prescription for NicoDerm 21 g patches changed daily at the time of discharge Hospital course Bri Avery is a 32-year-old white female who presented to [facility] emergency room with a complaint of a syncopal episode. She apparently was at home when this occurred. She relates that she thinks that she has fibromyalgia and took 2 pills of Lyrica around noon today that were given to her by a friend to help with back pain. She then started feeling somewhat dizzy and like she was drunk around 2 PM. She apparently passed out and hit her head at that time. She presents with some swelling to her forehead and a contusion to her left lower lip. She also is complaining of some pain to her tailbone. She states that she is feeling less dizzy at this time. She is unsure how long she was unconscious for. She does complain of a slight headache. She relates that this is the first time that she took the Lyrica and it was from a friend. She denies any neck or back pain. No extremity pain. No other complaints or modifying factors. Patient denies taking any other medications however Her urine toxicology screen was positive for methadone, amphetamine, and methamphetamine. Patient was admitted to medical floor neurology consultation was requested patient was asked about her toxicology screen and she admits taking some unknown pills from her friends, she was counseled in length in that regard, psychiatry consultation was requested. Patient also had evidence of tachycardia and a low-grade fever urine analysis revealed evidence of urinary tract infection she was started on IV Rocephin 1 g every 24 hours. Patient was admitted to medical floor she was evaluated by neurology, she was also seen by psychiatry in regard to substance abuse she was cleared for discharge no inpatient intervention was recommended at this time. Patient was counseled in length in regards to substance abuse and smoking. She was discharged home on 12/30/2017 She will follow with her primary care physician Dr. Larios within 1 week Patient Condition at Discharge: Good Plan - Discharge Summary Discharge Rx Participant: Yes New Discharge Prescriptions: New Cefuroxime Axetil [Ceftin] 500 mg PO BID #10 tab Nicotine 21Mg/24Hr Patch [Habitrol] 1 patch TRANSDERM DAILY patch Discharge Medication List Cefuroxime Axetil [Ceftin] 500 mg PO BID #10 tab 12/30/17 [Rx] Nicotine 21Mg/24Hr Patch [Habitrol] 1 patch TRANSDERM DAILY patch 12/30/17 [Rx] Follow up Appointment(s)/Referral(s): Molly Larios MD [Primary Care Provider] - 1-2 days Patient Instructions/Handouts: Syncope (DC), Chronic Pain (DC), New-Onset Seizure in Adults (DC) Activity/Diet/Wound Care/Special Instructions: Please use Tylenol or ibuprofen as needed for pain. FOLLOW UP WITH [facility] OUTPATIENT COUNSELING NEEDED
[2017-12-30 15:17] VITALS: BP 123/84; PULSE 99; RESP 14; TEMP 97
--- NOTE | 2017-12-30 19:38 | CONS ---
CONSULTATION DATE OF SERVICE/DICTATION: 12/30/2017. IDENTIFYING DATA: This patient is a 32-year-old female who was admitted to the hospital with complaints of syncope and suspected seizure. HISTORY OF PRESENT ILLNESS: The patient states that while at home she took a friend's Lycarlosa hoping it would help pain that she presumed was due to fibromyalgia. She states that she also took pills from a friend out of a bag that were likely ecstasy. She states that she thought they were candy at first. Subsequent to using any substances she had a syncopal episode. Her ex-boyfriend and friend are at the bedside. They state that she did have a witnessed seizure in the emergency room. The patient states that she did not attempt to harm herself by using any of the substances. She denies having any suicidal ideation. She has had symptoms of depression in the past as well as anxiety. She resides with her friend who was at bedside and her friend states that the patient does a good job of caring for children and has no concerns about her returning home. The patient denies any history of hypomanic or manic episodes. She reports having no homicidal ideation. She denies having any auditory or visual hallucinations or specific delusions. The patient has been seen by internal medicine and neurology. PAST PSYCHIATRIC HISTORY: No prior inpatient psychiatric admissions. No history of suicide attempts. She states she has not been placed on psychotropic medications for depressive or anxiety symptoms in the past. PAST MEDICAL HISTORY: She suspects she has fibromyalgia. ALLERGIES: No known drug allergies. CHEMICAL DEPENDENCY HISTORY: She states that she has abused methamphetamine in the past for several years, but has not used any in 5 years. She did attend inpatient chemical dependency treatment for that and has been clean since. SOCIAL HISTORY: The patient does have children. She resides with her friend. She was employed up until recently. She has a high school education with some further education at [employer]. MENTAL STATUS EXAM: The patient is an overweight female. She is lying in bed. She is dressed in hospital attire. She wears eye glasses. She is pleasant and cooperative during the interview. She reports that her mood has been stable. She indicates at times she will be anxious. She is reporting no suicidal or homicidal ideation, intent, or plan. She is reporting no auditory or visual hallucinations or any specific delusions. She demonstrates no evidence of psychosis. She demonstrates no tangential thinking, loose associations or flight of ideas. There is no evidence of hypomania or garry. She is oriented to person, place, and date. She demonstrates an appropriately expressive affect including smiling. She engages in conversation with her friends at bedside. IMPRESSION: 1. History of major depressive disorder, anxiety unspecified, methamphetamine use disorder, in reported remission. 2. Recent syncopal episode with seizure. PLAN: The patient is requesting to receive referral for outpatient counseling. She has undergone that activity in the past and has found it beneficial. She does not feel that she needs a medication prescribed for depression or anxiety. Her friends are at bedside. They assure me that the patient is doing well in caring for her children. They have no concerns regarding the children. They indicate they will oversee her medication use to the best of their ability. They do not feel that she is a imminent safety risk and they are comfortable with her returning home. The patient does not feel she needs a referral for inpatient chemical dependency treatment, but again is willing to discuss her symptoms in an outpatient setting. The case was discussed with the patient's nurse. TONY / LUIS: [id number] /
== END 2017-12-30 15:19 | disposition home or self-care (01) ==
LOC: EC 17:27 → INTOOBSV 21:00 → 4MS4W 21:00 → UNDODISIN 12-30 15:19
PROVIDERS: ADMIT Internal Medicine; ATTEND Internal Medicine
DX: R55 Syncope and collapse (principal); N39.0 Urinary tract infection, site not specified; R56.9 Unspecified convulsions; S00.531A Contusion of lip, initial encounter; S09.90XA Unspecified injury of head, initial encounter; S30.0XXA Contusion of lower back and pelvis, initial encounter; T42.6X1A Poisoning by other antiepileptic and sedative-hypnotic drugs, accidental (unintentional), initial encounter; M41.9 Scoliosis, unspecified; F11.10 Opioid abuse, uncomplicated; F15.10 Other stimulant abuse, uncomplicated; F32.9 Major depressive disorder, single episode, unspecified; F41.9 Anxiety disorder, unspecified; R00.0 Tachycardia, unspecified; F17.200 Nicotine dependence, unspecified, uncomplicated; E66.9 Obesity, unspecified; Z68.32 Body mass index [BMI] 32.0-32.9, adult; W18.30XA Fall on same level, unspecified, initial encounter; Y92.009 Unspecified place in unspecified non-institutional (private) residence as the place of occurrence of the external cause
CPT/HCPCS: 96376; 96361 ×3; 96372 ×3; 96374; 96375; 99285; 36415; 94760; 93005; 80053 ×2; 82550; 82553; 84484; 85025 ×2; 85610; 85730; 81001; 84703; 80306; 80320; 72220; 70450; G0378 ×3; S4990 ×2; J2060; J1650 ×2; J0696 ×2; C9113; 96360